=== PATIENT | female | born 1985 | race Caucasian/White ===

== ENCOUNTER 2021-01-16 06:51 | Inpatient (IN) | payer MEDICAID ==
[2021-01-16] MEDS ORDERED: Misoprostol 50 MCG (1/2 of 100 MCG) Tab VAG ONE (07:15)
[2021-01-16] MEDS ORDERED: Sodium Chloride 0.9% 10 ML Syringe FLUSH PRN (07:55)
[2021-01-16] MEDS ORDERED: Ondansetron 4 MG/2 ML SDV IV PRN (07:55)
[2021-01-16] MEDS ORDERED: Calcium Carbonate 500 MG Tab.Chew PO PRN (07:55)
[2021-01-16] MEDS ORDERED: Penicillin G Potassium 5 MILLUNITS in Sodium Chloride 0.9% 50 ML IV ONE (08:00)
[2021-01-16] MEDS ORDERED: Penicillin G Potassium 5 MILLUNITS in Sodium Chloride 0.9% 100 ML IV ONE (08:00)
[2021-01-16] MEDS: Sodium Chloride 0.9% 1,000 ML IV SCH ×2 (08:30→18:23)
--- NOTE | 2021-01-16 08:33 | PCM.LDHP ---
L&D History of Present Illness - General Date of Service: 01/16/21 Admit Problem/Dx: Patient Status Order with Admit Dx/Problem 01/16/21 07:55 Patient Status [ADT] Routine Admission Diagnosis/Problem Admission Diagnosis/Problem Term Source of Information: Patient History Limitations: Reports: No Limitations - History of Present Illness Introduction:: 01/16/21 Guadalupe is a 35 yo here for induction of labor at 39 2/7 weeks. She is currently living in [facility] for the last month. She has history of THC, smoking tobacco, and methamphetamine use in this , admitted by patient. Drug screen today is negative. She is O positive blood type, GBS positive, C/G negative, rubella immune, HIV/hep B/C/RPR all non reactive, and an A1C recently was 5.3. She reports that she does not currently have custody of her 5 year old and 2 year old twins, they are in the care of her mother. Her oldest child is 18. She has had all vaginal births without complications, pelvis is proven to 8 lb 14 oz. She is being induced today for advanced maternal age making her high risk, drug use in , and lack of care. Anatomy US was attempted x 2 but views were difficult to obtain due to size but no abnormalities were found. 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: : 4 Para: 4 LMP (Approximate): Endocrine/Metabolic History: Reports: Obesity/BMI 30+ - Past Surgical History Respiratory Surgical History: Reports: None Endocrine Surgical History: Reports: None Social & Family History - Tobacco Use Tobacco Use Status *Q: Current Every Day Tobacco User Years of Tobacco use: 22 Packs/Tins Daily: 0.5 Second Hand Smoke Exposure: Yes - Caffeine Use Caffeine Use: Reports: Coffee, Soda - Recreational Drug Use Recreational Drug Use: Yes Drug Use in Last 12 Months: Yes Recreational Drug Type: Reports: Marijuana/Hashish Recreational Drug Use Frequency: Daily Recreational Drug Last Use: 12/07/20 H&P Review of Systems - Review of Systems: Review Of Systems: See Below General: Reports: No Symptoms HEENT: Reports: No Symptoms Pulmonary: Reports: No Symptoms, Wheezing (chronic from smoking) Cardiovascular: Reports: No Symptoms Gastrointestinal: Reports: No Symptoms Genitourinary: Reports: No Symptoms Musculoskeletal: Reports: No Symptoms Skin: Reports: No Symptoms Psychiatric: Reports: No Symptoms Neurological: Reports: No Symptoms Hematologic/Lymphatic: Reports: No Symptoms Immunologic: Reports: No Symptoms L&D Exam - Exam Exam: See Below - Vital Signs Weight: 127.006 kg - OB Specific Contraction Intensity: Mild Movement: Active Heart Tones: Present Heart Tones per Min: 130 Heart Rate (FHR) Variability: Moderate (6-25 bmp) Presentation: Vertex - García Score García Score Cervix Position: Posterior García Score Consistency: Soft García Score Effacement: 31-50% García Score Dilation: 1-2 cm García Score 's Station: -3 García Score Total: 4 - Exam General: Alert, Oriented HEENT: PERRLA, Conjunctiva Clear, EACs Clear, Hearing Intact, Mucosa Moist & [place], Nares Patent, Posterior Pharynx Clear, Pupils Equal, Pupils Reactive Neck: Supple, Trachea Midline Lungs: Normal Respiratory Effort, Wheezing Cardiovascular: Regular Rate, Regular Rhythm GI/Abdominal Exam: Normal Bowel Sounds, Soft, Non-Tender, No Distention, Pelvis Stable Rectal Exam: Normal Exam Genitourinary: Normal external exam, Normal bimanual exam, Cervical dilitation. No: Vaginal bleeding Back Exam: Normal Inspection, Full Range of Motion Extremities: Normal Inspection, Normal Range of Motion, Non-Tender, Normal Capillary Refill, Pedal Edema (2+) Skin: Warm, Dry, Intact Neurological: Cranial Nerves Intact, Reflexes Equal Bilateral Psychiatric: Alert, Normal Affect, Normal Mood - Patient Data Lab Results Last 24 hrs: Laboratory Results - last 24 hr 01/16/21 01/16/21 01/16/21 Range/Units 06:59 06:59 07:13 WBC 11.0 (4.5-11.0) K/uL RBC 3.67 (3.30-5.50) M/uL Hgb 11.6 L (12.0-15.0) g/dL Hct 35.6 L (36.0-48.0) % MCV 97 (80-98) fL MCH 32 H (27-31) pg MCHC 33 (32-36) % Plt Count 248 (150-400) K/uL Neut % (Auto) 77.5 H (36-66) % Lymph % (Auto) 13.0 L (24-44) % [place] % (Auto) 8.1 H (2-6) % Eos % (Auto) 1.1 L (2-4) % Baso % (Auto) 0.3 (0-1) % Urine Color Yellow (YELLOW) Urine Appearance Cloudy A (CLEAR) Urine pH 7.0 (5.0-8.0) Ur Specific [place] 1.015 (1.008-1.030) Urine Protein Negative (NEGATIVE) mg/dL Urine Glucose (UA) Negative (NEGATIVE) mg/dL Urine Ketones Negative (NEGATIVE) mg/dL Urine Occult Blood Negative (NEGATIVE) Urine Nitrite Negative (NEGATIVE) Urine Bilirubin Negative (NEGATIVE) Urine Urobilinogen 0.2 (0.2-1.0) EU/dL Ur Leukocyte Esterase Trace H (NEGATIVE) Urine RBC 0-5 (0-5) Urine WBC 0-5 (0-5) Ur Epithelial Cells Many Amorphous Sediment Not seen Urine Bacteria Moderate Urine Mucus Moderate Urine Opiates Screen Negative (NEGATIVE) Ur Oxycodone Screen Negative (NEGATIVE) Urine Methadone Screen Negative (NEGATIVE) Ur Propoxyphene Screen Negative (NEGATIVE) Ur Barbiturates Screen Negative (NEGATIVE) Ur Tricyclics Screen Negative (NEGATIVE) Ur Phencyclidine Scrn Negative (NEGATIVE) Ur Amphetamine Screen Negative (NEGATIVE) U Methamphetamines Scrn Negative (NEGATIVE) Urine MDMA Screen Negative (NEGATIVE) U Benzodiazepines Scrn Negative (NEGATIVE) U Cocaine Metab Screen Negative (NEGATIVE) U Marijuana (THC) Screen Negative (NEGATIVE) Result Diagrams: 01/16/21 07:13 - Problem List (1) Encounter for induction of labor SNOMED Code(s): 676705540 ICD Code: Z34.90 - ENCNTR FOR SUPRVSN OF NORMAL , UNSP, UNSP TRIMESTER Status: Acute Current Visit: Yes (2) Term SNOMED Code(s): 54195221 ICD Code: Z34.90 - ENCNTR FOR SUPRVSN OF NORMAL , UNSP, UNSP TRIMESTER Status: Acute Current Visit: Yes (3) Drug abuse during SNOMED Code(s): 94538538 ICD Code: O99.320 - DRUG USE COMPLICATING , UNSPECIFIED TRIMESTER; F19.10 - OTHER PSYCHOACTIVE SUBSTANCE ABUSE, UNCOMPLICATED Status: Acute Current Visit: Yes (4) Positive GBS test SNOMED Code(s): 777368697, 345037520 ICD Code: B95.1 - STREPTOCOCCUS, GROUP B, CAUSING DISEASES CLASSD ELSWHR Status: Acute Current Visit: Yes (5) Advanced maternal age (AMA) in SNOMED Code(s): 003543711 ICD Code: PWR2173 - Status: Acute Current Visit: Yes Problem List Initiated/Reviewed/Updated: Yes Orders Last 24hrs: Active Orders 24 hr Category Date Time Status Patient Status [ADT] Routine ADT 01/16/21 07:55 Ordered Communication Order [RC] ASDIRECTED Care 01/16/21 07:55 Ordered Heart Tones [RC] PER UNIT ROUTINE Care 01/16/21 07:55 Ordered Non Stress Test [RC] Click to Edit Care 01/16/21 07:55 Ordered Notify Provider Vital Signs [RC] PRN Care 01/16/21 07:58 Ordered Notify Provider [RC] PRN Care 01/16/21 07:55 Ordered Up ad [place] [RC] ASDIRECTED Care 01/16/21 07:55 Ordered VTE/DVT Education [RC] Click to Edit Care 01/16/21 07:57 Ordered Vital Signs [RC] PER UNIT ROUTINE Care 01/16/21 07:55 Ordered Consult to Case Management/Tire Fabric Inspector [CONS] Cons 01/16/21 07:55 Ordered Routine Regular Diet [DIET] Diet 01/16/21 Breakfast Ordered Calcium Carbonate [Tums] Med 01/16/21 07:55 Ordered 1,000 mg PO Q2HR PRN Ondansetron [Zofran] Med 01/16/21 07:55 Ordered 4 mg IV Q4H PRN Penicillin G Potassium [Pfizerpen] 2.5 millunits Med 01/16/21 12:00 Ordered Sodium Chloride 0.9% [Normal Saline] 50 ml IV Q4H Penicillin G Potassium [Pfizerpen] 5 millunits Med 01/16/21 08:00 Active Sodium Chloride 0.9% [Normal Saline] 100 ml IV ONETIME Sodium Chloride 0.9% [Normal Saline] 1,000 ml Med 01/16/21 08:30 Ordered IV ASDIRECTED Sodium Chloride 0.9% [Saline Flush] Med 01/16/21 07:55 Ordered 10 ml FLUSH ASDIRECTED PRN DVT/VTE Prophylaxis Reflex [OM.PC] Routine Oth 01/16/21 07:55 Ordered Saline Lock Insert [OM.PC] Routine Oth 01/16/21 07:55 Ordered Resuscitation Status Routine Resus Stat 01/16/21 07:55 Ordered Medication Orders Calcium Carbonate/Glycine (Calcium Carbonate 500 Mg Tab.Chew) 1,000 mg PO Q2H PRN PRN Reason: Indigestion Penicillin G Potassium 2.5 (millunits/ Sodium Chloride) 50 mls @ 100 mls/hr IV Q4H ANGI Penicillin G Potassium 5 (millunits/ Sodium Chloride) 100 mls @ 200 mls/hr IV ONETIME ONE Stop: 01/16/21 08:29 Last Admin: 01/16/21 08:15 Dose: 200 mls/hr Documented by: BEATRICE Sodium Chloride (Normal Saline) 1,000 mls @ 125 mls/hr IV ASDIRECTED ANGI Ondansetron HCl (Ondansetron 4 Mg/2 Ml Sdv) 4 mg IV Q4H PRN PRN Reason: Nausea/Vomiting Sodium Chloride (Sodium Chloride 0.9% 10 Ml Syringe) 10 ml FLUSH ASDIRECTED PRN PRN Reason: Keep Vein Open Assessment/Plan Comment:: 01/16/21 Assessment: 39 2/7 weeks mother with AMA, drug use in , very limited care Induction of labor NST reactive SVE /-3, membranes intact Plan: [facility] contacted this morning, current case workers 50 mcg Cytotec inserted vaginally Plan for with epidural Penicillin for GBS
[2021-01-16] MEDS: Penicillin G Potassium 2.5 MILLUNITS in Sodium Chloride 0.9% 50 ML IV SCH ×3 (12:19→20:17)
--- NOTE | 2021-01-16 12:20 | PCM.PNLD ---
Labor Progress Note - VS & Meds Vital Signs: Last Vital Signs Temp 36.3 C 01/16/21 11:30 Pulse 94 01/16/21 11:30 Resp 16 01/16/21 11:30 BP 128/82 01/16/21 11:30 Pulse Ox 97 01/16/21 09:05 Active Medications: Current Medications Calcium Carbonate/Glycine (Calcium Carbonate 500 Mg Tab.Chew) 1,000 mg PO Q2H PRN PRN Reason: Indigestion Penicillin G Potassium 2.5 (millunits/ Sodium Chloride) 50 mls @ 100 mls/hr IV Q4H ANGI Sodium Chloride (Normal Saline) 1,000 mls @ 125 mls/hr IV ASDIRECTED ANGI Last Admin: 01/16/21 08:30 Dose: 125 mls/hr Documented by: Nicotine (Nicotine 7 Mg/24 Hr Patch) 7 mg TRDERM DAILY ANGI Ondansetron HCl (Ondansetron 4 Mg/2 Ml Sdv) 4 mg IV Q4H PRN PRN Reason: Nausea/Vomiting Sodium Chloride (Sodium Chloride 0.9% 10 Ml Syringe) 10 ml FLUSH ASDIRECTED PRN PRN Reason: Keep Vein Open Discontinued Medications Penicillin G Potassium 5 (millunits/ Sodium Chloride) 100 mls @ 200 mls/hr IV ONETIME ONE Stop: 01/16/21 08:29 Last Admin: 01/16/21 08:15 Dose: 200 mls/hr Documented by: Misoprostol (Misoprostol 50 Mcg (1/2 Of 100 Mcg) Tab) 50 mcg VAG ONETIME ONE Stop: 01/16/21 07:16 Last Admin: 01/16/21 08:13 Dose: 50 mcg Documented by: - Uterine Contractions Uterine Monitoring Mode: External [place] Contraction Frequency (min): 2 Contraction Duration (sec): 60-80 Contraction Intensity: Mild to Moderate Uterine Resting Tone: Soft - Monitoring Monitor Mode: External Ultrasound Heart Rate (FHR) Variability: Moderate (6-25 bmp) Accelerations: Present, 15x15 Decelerations: None Strip Review: Category I - Vaginal Exam Dilation (cm): 2 Effacement (Percent): 70 Station: -2 Cervical Position: Midposition Sterile Vaginal Exam Performed By: Denisse Brantley - Labor Progress (Free Text) Labor Progress: 01/16/21 Patient is having contractions every 2 minutes, mild to palpation and pain, they do feel like they have become stronger over the last hour patient reports. SVE /-2 and more mid position now so there has been good change. Will recheck in one hour and if no cervical change will start pitocin. Discussed AROM but would like to wait until 4-5 cm to do this. Category 1 tracing.
[2021-01-16] MEDS ORDERED: Nicotine 7 MG/24 Hr Patch TRDERM SCH (12:30)
[2021-01-16] MEDS ORDERED: Lactated Ringers 1,000 ML IV ONE (17:00)
[2021-01-16] MEDS ORDERED: ePHEDrine 50 MG/ML SDV IVPUSH PRN (17:00)
[2021-01-16] MEDS ORDERED: Propofol 200 MG/20 ML SDV ONE (17:08)
--- NOTE | 2021-01-16 17:09 | PCM.PNLD ---
Labor Progress Note - VS & Meds Vital Signs: Last Vital Signs Temp 36.6 C 01/16/21 16:00 Pulse 85 01/16/21 16:00 Resp 16 01/16/21 16:00 BP 139/78 01/16/21 16:00 Pulse Ox 94 L 01/16/21 16:00 Active Medications: Current Medications Calcium Carbonate/Glycine (Calcium Carbonate 500 Mg Tab.Chew) 1,000 mg PO Q2H PRN PRN Reason: Indigestion Ephedrine Sulfate (Ephedrine 50 Mg/Ml Sdv) 10 mg IVPUSH ASDIRECTED PRN PRN Reason: Hypotension Penicillin G Potassium 2.5 (millunits/ Sodium Chloride) 50 mls @ 100 mls/hr IV Q4H ANGI Last Admin: 01/16/21 12:19 Dose: 100 mls/hr Documented by: Sodium Chloride (Normal Saline) 1,000 mls @ 125 mls/hr IV ASDIRECTED ANGI Last Admin: 01/16/21 08:30 Dose: 125 mls/hr Documented by: Oxytocin/Sodium Chloride (Pitocin In Ns 20 Units/1,000 Ml) 20 unit in 1,000 mls @ 6 mls/hr IV TITRATE ANGI; Protocol Last Titration: 01/16/21 15:30 Dose: 5 munits/min, 15 mls/hr Documented by: Lactated Ringer's (Ringers, Lactated) 1,000 mls @ 999 mls/hr IV .BOLUS ONE Stop: 01/16/21 18:00 Ondansetron HCl (Ondansetron 4 Mg/2 Ml Sdv) 4 mg IV Q4H PRN PRN Reason: Nausea/Vomiting Sodium Chloride (Sodium Chloride 0.9% 10 Ml Syringe) 10 ml FLUSH ASDIRECTED PRN PRN Reason: Keep Vein Open Discontinued Medications Penicillin G Potassium 5 (millunits/ Sodium Chloride) 100 mls @ 200 mls/hr IV ONETIME ONE Stop: 01/16/21 08:29 Last Admin: 01/16/21 08:15 Dose: 200 mls/hr Documented by: Misoprostol (Misoprostol 50 Mcg (1/2 Of 100 Mcg) Tab) 50 mcg VAG ONETIME ONE Stop: 01/16/21 07:16 Last Admin: 01/16/21 08:13 Dose: 50 mcg Documented by: Nicotine (Nicotine 7 Mg/24 Hr Patch) 7 mg TRDERM DAILY ANGI Last Admin: 01/16/21 12:22 Dose: 7 mg Documented by: - Uterine Contractions Uterine Monitoring Mode: External [place] Contraction Frequency (min): 2-3 Contraction Duration (sec): 60-80 Contraction Intensity: Moderate Uterine Resting Tone: Soft - Monitoring Monitor Mode: External Ultrasound Heart Rate (FHR) Variability: Moderate (6-25 bmp) Accelerations: Present, 15x15 Decelerations: Early, Prolonged (>2x10 min) (x 1 ? positional) Strip Review: Category II - Vaginal Exam Dilation (cm): 5 Effacement (Percent): 80 Station: -2 Cervical Position: Midposition Sterile Vaginal Exam Performed By: Denisse Brantley - Labor Progress (Free Text) Labor Progress: 01/16/21 Patient did not have much for change so pitocin was started this afternoon. AROM was done at 1554 for large amounts of clear fluid. Patient is requesting epidural now and SVE is 5/80/-2. She is getting in the tub now and CUTTING DEPARTMENT SUPERVISOR was called. Category 1 tracing through out other than a questionable prolonged deceleration (mother was up bending over bed and it may have picked up her?) so this last bit is a category 2 but we have great variability. Contractions are strong.
[2021-01-16] MEDS ORDERED: Ropivacaine 100 ML ONE (19:10)
--- NOTE | 2021-01-16 19:26 | PCM.PNLD ---
Labor Progress Note - VS & Meds Vital Signs: Last Vital Signs Temp 35.8 C L 01/16/21 18:15 Pulse 82 01/16/21 19:00 Resp 18 01/16/21 19:00 BP 135/65 01/16/21 18:15 Pulse Ox 99 01/16/21 19:00 Active Medications: Current Medications Calcium Carbonate/Glycine (Calcium Carbonate 500 Mg Tab.Chew) 1,000 mg PO Q2H PRN PRN Reason: Indigestion Ephedrine Sulfate (Ephedrine 50 Mg/Ml Sdv) 10 mg IVPUSH ASDIRECTED PRN PRN Reason: Hypotension Penicillin G Potassium 2.5 (millunits/ Sodium Chloride) 50 mls @ 100 mls/hr IV Q4H ANGI Last Admin: 01/16/21 17:06 Dose: 100 mls/hr Documented by: Sodium Chloride (Normal Saline) 1,000 mls @ 125 mls/hr IV ASDIRECTED ANGI Last Admin: 01/16/21 18:23 Dose: 125 mls/hr Documented by: Oxytocin/Sodium Chloride (Pitocin In Ns 20 Units/1,000 Ml) 20 unit in 1,000 mls @ 6 mls/hr IV TITRATE ANGI; Protocol Last Titration: 01/16/21 15:30 Dose: 5 munits/min, 15 mls/hr Documented by: Ondansetron HCl (Ondansetron 4 Mg/2 Ml Sdv) 4 mg IV Q4H PRN PRN Reason: Nausea/Vomiting Sodium Chloride (Sodium Chloride 0.9% 10 Ml Syringe) 10 ml FLUSH ASDIRECTED PRN PRN Reason: Keep Vein Open Discontinued Medications Penicillin G Potassium 5 (millunits/ Sodium Chloride) 100 mls @ 200 mls/hr IV ONETIME ONE Stop: 01/16/21 08:29 Last Admin: 01/16/21 08:15 Dose: 200 mls/hr Documented by: Lactated Ringer's (Ringers, Lactated) 1,000 mls @ 999 mls/hr IV .BOLUS ONE Stop: 01/16/21 18:00 Last Admin: 01/16/21 16:50 Dose: 999 mls/hr Documented by: Ropivacaine (Naropin 0.2%) Confirm Administered Dose 100 mls @ as directed .ROUTE .STK-MED ONE Stop: 01/16/21 19:11 Misoprostol (Misoprostol 50 Mcg (1/2 Of 100 Mcg) Tab) 50 mcg VAG ONETIME ONE Stop: 01/16/21 07:16 Last Admin: 01/16/21 08:13 Dose: 50 mcg Documented by: Nicotine (Nicotine 7 Mg/24 Hr Patch) 7 mg TRDERM DAILY ANGI Last Admin: 01/16/21 12:22 Dose: 7 mg Documented by: Propofol (Propofol 200 Mg/20 Ml Sdv) Confirm Administered Dose 200 mg .ROUTE .STK-MED ONE Stop: 01/16/21 17:09 - Uterine Contractions Uterine Monitoring Mode: External [place] Contraction Frequency (min): 1.5-4 Contraction Duration (sec): 70-90 Contraction Intensity: Moderate Uterine Resting Tone: Soft - Monitoring Monitor Mode: External Ultrasound Heart Rate (FHR) Variability: Moderate (6-25 bmp) Accelerations: Present, 15x15 Decelerations: Early Strip Review: Category I (appears category 1 currently, broken tracing) - Vaginal Exam Dilation (cm): 7 Effacement (Percent): 80 Station: -2 Cervical Position: Midposition Sterile Vaginal Exam Performed By: Denisse Brantley - Labor Progress (Free Text) Labor Progress: 01/16/21 SVE 7/80/-2. Baby decent has been somewhat slow. PRICER here now and patient getting an epidural. She did well with nitrous oxide prior to this. The tracing is broken due to body habitus but baby appears category 1. Will continue to monitor FHT's and labor progress. Slowly titrating pitocin up.
--- NOTE | 2021-01-16 20:21 | ANES ---
DATE OF SERVICE: 01/16/2021 TIME: 19:15. INDICATION: I was called to the Labor and Delivery Unit by Denisse Brantley CNM, to evaluate Ms. Mott for a labor epidural. She is 5, approximately 5 to 7 cm, in active labor. The risks and benefits of the procedure were explained to the patient. She wished to proceed. Of note, she is allergic to latex, and I did use latex-free gloves. TECHNIQUE: She was placed in a sitting position. Her back was prepped x3 with Betadine, 1% lidocaine skin local was used. The epidural was placed at L3-4 using a 17-gauge Tuohy needle and loss of resistance technique. The epidural had very good feel throughout, and the epidural space was easily identified. There was negative CSF, negative blood, and negative paresthesias noted. Therefore, a catheter was threaded to 15 cm at the skin. There was negative CSF, negative blood, negative paresthesias with the catheter. A 1.5% lidocaine test dose with epinephrine was given, and this test dose was negative. The catheter was then secured with Tegaderm and tape. The patient was placed in a supine position. A 12 mL bolus of 0.2% ropivacaine was given. Patient had good results, and her vital signs remained stable. Therefore 0.2% ropivacaine drip was started at 12 mL/h. The patient tolerated procedure very nicely. Her vital signs remained stable throughout the procedure, and nurse was with me for the entire procedure. There were no anesthesia complications noted. We will continue to monitor her throughout her labor. Eric Manzano CRNA /[id number]
[2021-01-16] MEDS ORDERED: Methylergonovine 0.2 MG/1 ML Amp ONE (21:54)
[2021-01-16] MEDS ORDERED: Carboprost Tromethamine 250 MCG/1 ML Amp ONE (21:54)
[2021-01-16] MEDS ORDERED: Misoprostol 200 MCG Tab ONE (21:54)
[2021-01-16] MEDS ORDERED: Benzocaine 20% Top Spray 56 GM Bottle TOP PRN (22:47)
[2021-01-16] MEDS ORDERED: Docusate Sodium 100 MG Cap PO PRN (22:47)
[2021-01-16] MEDS ORDERED: Nicotine Polacrilex 2 MG Gum CHEW PRN (22:49)
[2021-01-16] MEDS ORDERED: Acetaminophen 325 MG Tab, 50 Tab Bulk Bottle PO PRN (22:49)
[2021-01-16] MEDS ORDERED: Ibuprofen 200 MG Tab, 24 Tab Bulk Bottle PO PRN (22:49)
--- NOTE | 2021-01-16 23:00 | PCM.DEL ---
L & D Note - General Info Date of Service: 01/16/21 Mother's Due Date: 01/21/21 - Delivery Note Labor: Augmented by ARM, Augmented by Oxytocin Cervical Ripening Method: Misoprostil Delivery Outcome: Livebirth Infant Delivery Method: Spontaneous Vaginal Delivery-Single Delivery Mode: Spontaneous Presentation: Left Occiput Anterior (ANDRIY) Nuchal Cord: None Anesthesia Type: Epidural, Nitrous Oxide Amniotic Fluid Description: Clear Episiotomy Type: None Laceration: Periurethral (right, repaired) Suture size: 3-0 Placenta: Intact, Spontaneous Cord: 3 Vessels Estimated Blood Loss: 300 Resuscitation Needed: No [place]: Bulb Syringe, Stimulated, [place] Used, Warmer Used Provider: Denisse Brantley Score 1 min: 7 Score 5 min: 8 Second Stage Interventions: Reports: Second Nurse Assessed Progress of Descent, Second Nurse Reviewed Contraction Pattern, Second Nurse Reviewed Heart Tones, Encouragement Given, Pushing Effectively, Pushing, McRobert's Position Delivery Comments (Free Text/Narrative):: 01/16/21 Guadalupe is a 35 yo who delivered a viable male infant at 39 2/7 weeks after induction of labor. She was induced for advanced maternal age, drug use in , and high risk for lack of care. There was THC, tobacco, and methamphetamine use in . Mother received care starting at 35 weeks after moving into an addiction treatment center. She was given cytotec this am for cervical ripening and then after pitocin was started. AROM was done for clear fluid this afternoon. She continued to make slow progress but eventually dilated and pushed briefly. Baby boy was delivered at 2220 in ANDRIY position. He was placed on mothers chest, dried, stimulated, and bulb suctioned. He cried quietly but had poor tone so the cord was clamped and cut at one minute and he was brought to the warmer to be aroused. He quickly cried and pinked up. Saturations were low, possibly poor pleth but blow by was done for retractions. I did CPAP for 1 minute at a pressure of 5 on RA due to wet sounding lungs, retractions, and to help his overall tone and breathing, not due to poor respiratory effort. He cried and saturations were normal from that point on. He was then brought to mothers chest. Placenta delivered dirty lees, appears intact but membranes are very friable, placental ortega noted on side, placenta had calcifications, 3 vessel cord. Sent to pathology. EBL 300 ml, FF with pitocin given for stage 3 management. Apgars 7, 9. There are no perinea l, vaginal, or cervical tears. There is a right sided periurethral split that was tacked in three spots loosely. Stages of labor: 1: 5682-9188 2: 1839-3045 3: 1871-9481 Induction Criteria - García Score García Score Dilation: 1-2 cm García Score Effacement: 40-50% García Score 's Station: -3 García Score Consistency: Soft García Score Cervix Position: Posterior García Score Total: 4 García Score Presenting Part: Reports: Cephalic - Induction Gestational Age >/= 39 wks: Yes Estimated Pelvis: Reports: Adequate Reassuring Monitoring Strip: Yes Absence of Tachy Systole: Yes - Augmentation Estimated Pelvis: Reports: Adequate Weight Estimated:: Reports: AGA Estimated Weight if LGA: 3.629 kg Reassuring Monitoring Strip: Yes Absence of Tachy Systole: Yes - General Info Date of Service: 01/16/21 Functional Status: Reports: Pain Controlled - Review of Systems General: Reports: No Symptoms HEENT: Reports: No Symptoms Pulmonary: Reports: No Symptoms Cardiovascular: Reports: No Symptoms Gastrointestinal: Reports: No Symptoms Genitourinary: Reports: No Symptoms Musculoskeletal: Reports: No Symptoms Skin: Reports: No Symptoms Neurological: Reports: No Symptoms Psychiatric: Reports: Anxiety, Cravings (tobacco, irritated) - Patient Data Vitals - Most Recent: Last Vital Signs Temp 36.5 C 01/16/21 19:50 Pulse 77 01/16/21 21:00 Resp 18 01/16/21 21:00 BP 103/59 L 01/16/21 21:00 Pulse Ox 97 01/16/21 21:00 Weight - Most Recent: 127.006 kg I&O - Last 24 Hours: Intake & Output 01/16/21 01/16/21 01/16/21 06:59 14:59 22:59 Intake Total 1050 Balance 1050 Lab Results Last 24 Hours: Laboratory Results - last 24 hr 01/16/21 01/16/21 01/16/21 Range/Units 06:59 06:59 07:13 WBC 11.0 (4.5-11.0) K/uL RBC 3.67 (3.30-5.50) M/uL Hgb 11.6 L (12.0-15.0) g/dL Hct 35.6 L (36.0-48.0) % MCV 97 (80-98) fL MCH 32 H (27-31) pg MCHC 33 (32-36) % Plt Count 248 (150-400) K/uL Neut % (Auto) 77.5 H (36-66) % Lymph % (Auto) 13.0 L (24-44) % [place] % (Auto) 8.1 H (2-6) % Eos % (Auto) 1.1 L (2-4) % Baso % (Auto) 0.3 (0-1) % Urine Color Yellow (YELLOW) Urine Appearance Cloudy A (CLEAR) Urine pH 7.0 (5.0-8.0) Ur Specific Whick 1.015 (1.008-1.030) Urine Protein Negative (NEGATIVE) mg/dL Urine Glucose (UA) Negative (NEGATIVE) mg/dL Urine Ketones Negative (NEGATIVE) mg/dL Urine Occult Blood Negative (NEGATIVE) Urine Nitrite Negative (NEGATIVE) Urine Bilirubin Negative (NEGATIVE) Urine Urobilinogen 0.2 (0.2-1.0) EU/dL Ur Leukocyte Esterase Trace H (NEGATIVE) Urine RBC 0-5 (0-5) Urine WBC 0-5 (0-5) Ur Epithelial Cells Many Amorphous Sediment Not seen Urine Bacteria Moderate Urine Mucus Moderate Urine Opiates Screen Negative (NEGATIVE) Ur Oxycodone Screen Negative (NEGATIVE) Urine Methadone Screen Negative (NEGATIVE) Ur Propoxyphene Screen Negative (NEGATIVE) Ur Barbiturates Screen Negative (NEGATIVE) Ur Tricyclics Screen Negative (NEGATIVE) Ur Phencyclidine Scrn Negative (NEGATIVE) Ur Amphetamine Screen Negative (NEGATIVE) U Methamphetamines Scrn Negative (NEGATIVE) Urine MDMA Screen Negative (NEGATIVE) U Benzodiazepines Scrn Negative (NEGATIVE) U Cocaine Metab Screen Negative (NEGATIVE) U Marijuana (THC) Screen Negative (NEGATIVE) SARS CoV-2 RNA Rapid ALIREZA 01/16/21 Range/Units 08:32 WBC (4.5-11.0) K/uL RBC (3.30-5.50) M/uL Hgb (12.0-15.0) g/dL Hct (36.0-48.0) % MCV (80-98) fL MCH (27-31) pg MCHC (32-36) % Plt Count (150-400) K/uL Neut % (Auto) (36-66) % Lymph % (Auto) (24-44) % [place] % (Auto) (2-6) % Eos % (Auto) (2-4) % Baso % (Auto) (0-1) % Urine Color (YELLOW) Urine Appearance (CLEAR) Urine pH (5.0-8.0) Ur Specific [place] (1.008-1.030) Urine Protein (NEGATIVE) mg/dL Urine Glucose (UA) (NEGATIVE) mg/dL Urine Ketones (NEGATIVE) mg/dL Urine Occult Blood (NEGATIVE) Urine Nitrite (NEGATIVE) Urine Bilirubin (NEGATIVE) Urine Urobilinogen (0.2-1.0) EU/dL Ur Leukocyte Esterase (NEGATIVE) Urine RBC (0-5) Urine WBC (0-5) Ur Epithelial Cells Amorphous Sediment Urine Bacteria Urine Mucus Urine Opiates Screen (NEGATIVE) Ur Oxycodone Screen (NEGATIVE) Urine Methadone Screen (NEGATIVE) Ur Propoxyphene Screen (NEGATIVE) Ur Barbiturates Screen (NEGATIVE) Ur Tricyclics Screen (NEGATIVE) Ur Phencyclidine Scrn (NEGATIVE) Ur Amphetamine Screen (NEGATIVE) U Methamphetamines Scrn (NEGATIVE) Urine MDMA Screen (NEGATIVE) U Benzodiazepines Scrn (NEGATIVE) U Cocaine Metab Screen (NEGATIVE) U Marijuana (THC) Screen (NEGATIVE) SARS CoV-2 RNA Rapid ALIREZA Negative Med Orders - Current: Current Medications Acetaminophen (Acetaminophen 325 Mg Tab, 50 Tab Bulk Bottle) 0 mg PO Q4H PRN PRN Reason: Pain Benzocaine (Benzocaine 20% Top [place] 56 Gm Bottle) 0 gm TOP Q4H PRN PRN Reason: Perineal Comfort Measure Calcium Carbonate/Glycine (Calcium Carbonate 500 Mg Tab.Chew) 1,000 mg PO Q2H PRN PRN Reason: Indigestion Docusate Sodium (Docusate Sodium 100 Mg Cap) 100 mg PO BID PRN PRN Reason: Constipation Ephedrine Sulfate (Ephedrine 50 Mg/Ml Sdv) 10 mg IVPUSH ASDIRECTED PRN PRN Reason: Hypotension Penicillin G Potassium 2.5 (millunits/ Sodium Chloride) 50 mls @ 100 mls/hr IV Q4H ANGI Last Admin: 01/16/21 20:17 Dose: 100 mls/hr Documented by: Sodium Chloride (Normal Saline) 1,000 mls @ 125 mls/hr IV ASDIRECTED ANGI Last Admin: 01/16/21 18:23 Dose: 125 mls/hr Documented by: Oxytocin/Sodium Chloride (Pitocin In Ns 20 Units/1,000 Ml) 20 unit in 1,000 mls @ 6 mls/hr IV TITRATE ANGI; Protocol Last Titration: 01/16/21 20:49 Dose: 9 munits/min, 27 mls/hr Documented by: Ibuprofen (Ibuprofen 200 Mg Tab, 24 Tab Bulk Bottle) 600 mg PO Q6H PRN PRN Reason: Pain Nicotine Polacrilex (Nicotine Polacrilex 2 Mg Gum) 2 mg CHEW Q2H PRN PRN Reason: Other Ondansetron HCl (Ondansetron 4 Mg/2 Ml Sdv) 4 mg IV Q4H PRN PRN Reason: Nausea/Vomiting Sodium Chloride (Sodium Chloride 0.9% 10 Ml Syringe) 10 ml FLUSH ASDIRECTED PRN PRN Reason: Keep Vein Open Discontinued Medications Carboprost Tromethamine (Carboprost Tromethamine 250 Mcg/1 Ml Amp) Confirm Administered Dose 250 mcg .ROUTE .STK-MED ONE Stop: 01/16/21 21:55 Penicillin G Potassium 5 (millunits/ Sodium Chloride) 100 mls @ 200 mls/hr IV ONETIME ONE Stop: 01/16/21 08:29 Last Admin: 01/16/21 08:15 Dose: 200 mls/hr Documented by: Lactated Ringer's (Ringers, Lactated) 1,000 mls @ 999 mls/hr IV .BOLUS ONE Stop: 01/16/21 18:00 Last Admin: 01/16/21 16:50 Dose: 999 mls/hr Documented by: Ropivacaine (Naropin 0.2%) Confirm Administered Dose 100 mls @ as directed .ROUTE .STK-MED ONE Stop: 01/16/21 19:11 Methylergonovine Maleate (Methylergonovine 0.2 Mg/1 Ml Amp) Confirm Administered Dose 0.2 mg .ROUTE .STK-MED ONE Stop: 01/16/21 21:55 Misoprostol (Misoprostol 50 Mcg (1/2 Of 100 Mcg) Tab) 50 mcg VAG ONETIME ONE Stop: 01/16/21 07:16 Last Admin: 01/16/21 08:13 Dose: 50 mcg Documented by: Misoprostol (Misoprostol 200 Mcg Tab) Confirm Administered Dose 800 mcg .ROUTE .STK-MED ONE Stop: 01/16/21 21:55 Nicotine (Nicotine 7 Mg/24 Hr Patch) 7 mg TRDERM DAILY ANGI Last Admin: 01/16/21 12:22 Dose: 7 mg Documented by: Propofol (Propofol 200 Mg/20 Ml Sdv) Confirm Administered Dose 200 mg .ROUTE .STK-MED ONE Stop: 01/16/21 17:09 - Exam Urinary Catheter Total Time: 0Days 2Hours General: Alert, Oriented HEENT: Pupils Equal, Pupils Reactive, Mucous Membr. Moist/[place] Neck: Supple Lungs: Clear to Auscultation, Normal Respiratory Effort Cardiovascular: Regular Rate, Regular Rhythm GI/Abdominal Exam: Normal Bowel Sounds, Soft, Non-Tender, Pelvis Stable (Female) Exam: Normal External Exam, Normal Bimanual Exam, Cervical Dilatation, Enlarged Uterus, Vaginal Bleeding. No: Cervical Lesions, Vaginal Tears Back Exam: Normal Inspection, Full Range of Motion Extremities: Normal Inspection, Normal Range of Motion, Non-Tender, Normal Capillary Refill, Pedal Edema Skin: Warm, Dry, Intact Neurological: No New Focal Deficit Psy/Mental Status: Alert, Normal Affect, Normal Mood - Problem List & Annotations (1) Encounter for induction of labor SNOMED Code(s): 295711722 Code(s): Z34.90 - ENCNTR FOR SUPRVSN OF NORMAL , UNSP, UNSP TRIMESTER Status: Acute Current Visit: Yes (2) Term SNOMED Code(s): 88713757 Code(s): Z34.90 - ENCNTR FOR SUPRVSN OF NORMAL , UNSP, UNSP TRIMESTER Status: Acute Current Visit: Yes (3) Drug abuse during SNOMED Code(s): 70891523 Code(s): O99.320 - DRUG USE COMPLICATING , UNSPECIFIED TRIMESTER; F19.10 - OTHER PSYCHOACTIVE SUBSTANCE ABUSE, UNCOMPLICATED Status: Acute Current Visit: Yes (4) Positive GBS test SNOMED Code(s): 251074438, 071872190 Code(s): B95.1 - STREPTOCOCCUS, GROUP B, CAUSING DISEASES CLASSD ELSWHR Status: Acute Current Visit: Yes (5) Advanced maternal age (AMA) in SNOMED Code(s): 645270844 Code(s): ZMW6172 - Status: Acute Current Visit: Yes (6) Tear of periurethral tissue with delivery SNOMED Code(s): 788362073, 914840836 Code(s): O71.89 - OTHER SPECIFIED OBSTETRIC TRAUMA Status: Acute Current Visit: Yes (7) Vaginal delivery SNOMED Code(s): 659307408 Code(s): O80 - ENCOUNTER FOR FULL-TERM UNCOMPLICATED DELIVERY Status: Acute Current Visit: Yes - Problem List Review Problem List Initiated/Reviewed/Updated: Yes - My Orders Last 24 Hours: My Active Orders 01/16/21 07:55 Patient Status [ADT] Routine Communication Order [RC] ASDIRECTED Heart Tones [RC] PER UNIT ROUTINE Non Stress Test [RC] Click to Edit Notify Provider [RC] PRN Up ad [place] [RC] ASDIRECTED Vital Signs [RC] PER UNIT ROUTINE Consult to Case Management/Accounts Receivable Clerk [CONS] Routine Calcium Carbonate [Tums] 1,000 mg PO Q2H PRN Ondansetron [Zofran] 4 mg IV Q4H PRN Sodium Chloride 0.9% [Saline Flush] 10 ml FLUSH ASDIRECTED PRN DVT/VTE Prophylaxis Reflex [OM.PC] Routine Saline Lock Insert [OM.PC] Routine Resuscitation Status Routine 01/16/21 07:57 VTE/DVT Education [RC] Click to Edit 01/16/21 07:58 Notify Provider Vital Signs [RC] PRN 01/16/21 Breakfast Regular Diet [DIET] 01/16/21 08:30 Sodium Chloride 0.9% [Normal Saline] 1,000 ml IV ASDIRECTED 01/16/21 12:00 Penicillin G Potassium [Pfizerpen] 2.5 millunits Sodium Chloride 0.9% [Normal Saline] 50 ml IV Q4H 01/16/21 13:15 Oxytocin/Normal Saline [Pitocin in NS 20 Units/1,000 ML] 20 unit in 1,000 ml IV TITRATE 01/16/21 17:00 Communication Order [RC] ASDIRECTED Insert Urinary Catheter [OM.PC] ASDIRECTED Local Anesthetic Infusion Pump [RC] ASDIRECTED PCEA Epidural [RC] ASDIRECTED Urinary Catheter Assessment [RC] ASDIRECTED ePHEDrine [ePHEDrine sulfate] 10 mg IVPUSH ASDIRECTED PRN Epidural Catheter Management [OM.PC] Urgent 01/16/21 18:02 Communication Order [RC] Per Unit Routine Communication Order [RC] Per Unit Routine Communication Order [RC] Per Unit Routine Communication Order [RC] Per Unit Routine Nitrous Oxide Delivery [RC] ASDIRECTED Oxygen Therapy [RC] ASDIRECTED Pulse Oximetry [RC] ASDIRECTED Verify Patient Consent Obtain [RC] ASDIRECTED Medication Discontinuation Instructions [OM.PC] Routine 01/16/21 22:47 Patient Status [ADT] Routine Vital Signs [RC] PFP Benzocaine [Pknq-Z-Jlhfoad 20% [place]] See Dose Instructions TOP Q4H PRN Docusate Sodium [Colace] 100 mg PO BID PRN Assess Lochia [WOMSER] Per Unit Routine Assess Uterine Involution [WOMSER] Per Unit Routine 01/16/21 22:48 Ice Therapy [OM.PC] Per Unit Routine Perineal Care [OM.PC] Per Unit Routine 01/16/21 22:49 Acetaminophen [Tylenol Bulk Bottle] See Dose Instructions PO Q4H PRN Ibuprofen [Motrin Bulk Bottle] 600 mg PO Q6H PRN Nicotine Polacrilex [Nicorelief] 2 mg CHEW Q2H PRN 01/17/21 05:11 CBC WITH AUTO DIFF [HEME] AM - Assessment Assessment:: 01/16/21 at 39 2/7 Periurethral split, right side, repaired EBL 300 ml FF Bottle feeding - Plan Plan:: 01/16/21 Assessment: 39 2/7 weeks mother with AMA, drug use in , very limited care Induction of labor NST reactive SVE 3, membranes intact Plan: [facility] services contacted this morning, current case workers 50 mcg Cytotec inserted vaginally Plan for with epidural Penicillin for GBS 01/16/21 Routine cares and follow up building services engineer involved, no concern for keeping baby with mother for now Anticipate 24-48 hour stay for mother Nicotine gum ordered
[2021-01-17] MEDS: Penicillin G Potassium 2.5 MILLUNITS in Sodium Chloride 0.9% 50 ML IV SCH (00:09)
--- NOTE | 2021-01-17 08:51 | PCM.PNPP ---
- General Info Date of Service: 01/17/21 Functional Status: Reports: Pain Controlled - Review of Systems General: Reports: No Symptoms HEENT: Reports: No Symptoms Pulmonary: Reports: No Symptoms Cardiovascular: Reports: Edema (pedal) Gastrointestinal: Reports: No Symptoms Genitourinary: Reports: No Symptoms Musculoskeletal: Reports: No Symptoms Skin: Reports: No Symptoms Neurological: Reports: No Symptoms Psychiatric: Reports: Anxiety (slightly irritated but cooperative and calm with staff), Cravings (cigarettes) - General Info Date of Service: 01/17/21 - Patient Data Vital Signs - Most Recent: Last Vital Signs Temp 36.4 C 01/17/21 07:30 Pulse 86 01/17/21 07:30 Resp 20 01/17/21 07:30 BP 121/67 01/17/21 07:30 Pulse Ox 96 01/17/21 07:30 Weight - Most Recent: 127.006 kg I&O - Last 24 Hours: Intake & Output 01/16/21 01/17/21 01/17/21 22:59 06:59 14:59 Intake Total 1050 Output Total 500 Balance 550 Lab Results - Last 24 Hours: Laboratory Results - last 24 hr 01/16/21 01/17/21 Range/Units 08:32 05:35 WBC 12.8 H (4.5-11.0) K/uL RBC 3.52 (3.30-5.50) M/uL Hgb 11.3 L (12.0-15.0) g/dL Hct 34.1 L (36.0-48.0) % MCV 97 (80-98) fL MCH 32 H (27-31) pg MCHC 33 (32-36) % Plt Count 213 (150-400) K/uL Neut % (Auto) 80.5 H (36-66) % Lymph % (Auto) 11.1 L (24-44) % [place] % (Auto) 7.3 H (2-6) % Eos % (Auto) 0.9 L (2-4) % Baso % (Auto) 0.2 (0-1) % SARS CoV-2 RNA Rapid ALIREZA Negative Med Orders - Current: Current Medications Acetaminophen (Acetaminophen 325 Mg Tab, 50 Tab Bulk Bottle) 1 - 2 mg PO Q4H PRN PRN Reason: Pain Last Admin: 01/17/21 00:18 Dose: 650 mg Documented by: Benzocaine (Benzocaine 20% Top [place] 56 Gm Bottle) 0 gm TOP Q4H PRN PRN Reason: Perineal Comfort Measure Last Admin: 01/17/21 00:19 Dose: 1 applic Documented by: Calcium Carbonate/Glycine (Calcium Carbonate 500 Mg Tab.Chew) 1,000 mg PO Q2H PRN PRN Reason: Indigestion Docusate Sodium (Docusate Sodium 100 Mg Cap) 100 mg PO BID PRN PRN Reason: Constipation Ibuprofen (Ibuprofen 200 Mg Tab, 24 Tab Bulk Bottle) 600 mg PO Q6H PRN PRN Reason: Pain Last Admin: 01/17/21 00:18 Dose: 600 mg Documented by: Nicotine Polacrilex (Nicotine Polacrilex 2 Mg Gum) 2 mg CHEW Q2H PRN PRN Reason: Other Last Admin: 01/17/21 00:18 Dose: 2 mg Documented by: Ondansetron HCl (Ondansetron 4 Mg/2 Ml Sdv) 4 mg IV Q4H PRN PRN Reason: Nausea/Vomiting Sodium Chloride (Sodium Chloride 0.9% 10 Ml Syringe) 10 ml FLUSH ASDIRECTED PRN PRN Reason: Keep Vein Open Discontinued Medications Carboprost Tromethamine (Carboprost Tromethamine 250 Mcg/1 Ml Amp) Confirm Administered Dose 250 mcg .ROUTE .STK-MED ONE Stop: 01/16/21 21:55 Last Admin: 01/17/21 00:09 Dose: Not Given Documented by: Ephedrine Sulfate (Ephedrine 50 Mg/Ml Sdv) 10 mg IVPUSH ASDIRECTED PRN PRN Reason: Hypotension Penicillin G Potassium 2.5 (millunits/ Sodium Chloride) 50 mls @ 100 mls/hr IV Q4H [facility] Last Admin: 01/17/21 00:09 Dose: Not Given Documented by: Penicillin G Potassium 5 (millunits/ Sodium Chloride) 100 mls @ 200 mls/hr IV ONETIME ONE Stop: 01/16/21 08:29 Last Admin: 01/16/21 08:15 Dose: 200 mls/hr Documented by: Sodium Chloride (Normal Saline) 1,000 mls @ 125 mls/hr IV ASDIRECTED [facility] Last Admin: 01/16/21 18:23 Dose: 125 mls/hr Documented by: Oxytocin/Sodium Chloride (Pitocin In Ns 20 Units/1,000 Ml) 20 unit in 1,000 mls @ 6 mls/hr IV TITRATE ANGI; Protocol Last Titration: 01/16/21 20:49 Dose: 9 munits/min, 27 mls/hr Documented by: Lactated Ringer's (Ringers, Lactated) 1,000 mls @ 999 mls/hr IV .BOLUS ONE Stop: 01/16/21 18:00 Last Admin: 01/16/21 16:50 Dose: 999 mls/hr Documented by: Ropivacaine (Naropin 0.2%) Confirm Administered Dose 100 mls @ as directed .ROUTE .STK-MED ONE Stop: 01/16/21 19:11 Methylergonovine Maleate (Methylergonovine 0.2 Mg/1 Ml Amp) Confirm Administered Dose 0.2 mg .ROUTE .STK-MED ONE Stop: 01/16/21 21:55 Last Admin: 01/17/21 00:09 Dose: Not Given Documented by: Misoprostol (Misoprostol 50 Mcg (1/2 Of 100 Mcg) Tab) 50 mcg VAG ONETIME ONE Stop: 01/16/21 07:16 Last Admin: 01/16/21 08:13 Dose: 50 mcg Documented by: Misoprostol (Misoprostol 200 Mcg Tab) Confirm Administered Dose 800 mcg .ROUTE .STK-MED ONE Stop: 01/16/21 21:55 Last Admin: 01/17/21 00:08 Dose: Not Given Documented by: Nicotine (Nicotine 7 Mg/24 Hr Patch) 7 mg TRDERM DAILY [facility] Last Admin: 01/16/21 12:22 Dose: 7 mg Documented by: Propofol (Propofol 200 Mg/20 Ml Sdv) Confirm Administered Dose 200 mg .ROUTE .STK-MED ONE Stop: 01/16/21 17:09 - Interaction Infant Disposition, : at Bedside Interaction: Holding Infant Feeding: Bottle Fed - Recovery Exam Fundal Tone: Firm Fundal Level: At Umbilicus Fundal Placement: Midline Lochia Amount: Moderate Lochia Color: Rubra/Red Perineum Description: Intact, Minimal Bruising/Swelling Episiotomy/Laceration: Approximated Bladder Status: Voiding Urinary Elimination: Voided - Exam General: Alert, Oriented, Cooperative HEENT: Pupils Equal, Pupils Reactive, Mucous Membr. Moist/[place] Neck: Supple Lungs: Clear to Auscultation, Normal Respiratory Effort Cardiovascular: Regular Rate, Regular Rhythm GI/Abdominal Exam: Normal Bowel Sounds, Soft, Non-Tender, No Mass, Pelvis Stable Extremities: Normal Inspection, Normal Range of Motion, Non-Tender, Normal Capillary Refill, Pedal Edema Skin: Warm, Dry, Intact Neurological: No New Focal Deficit Psy/Mental Status: Alert, Normal Affect, Anxious, Agitated (wanting to smoke, antsy, cooperative and doing well with baby) - Problem List & Annotations (1) Encounter for induction of labor SNOMED Code(s): 008942098 Code(s): Z34.90 - ENCNTR FOR SUPRVSN OF NORMAL , UNSP, UNSP TR IMESTER Status: Acute Current Visit: Yes (2) Term SNOMED Code(s): 11305845 Code(s): Z34.90 - ENCNTR FOR SUPRVSN OF NORMAL , UNSP, UNSP TRIMESTER Status: Acute Current Visit: Yes (3) Drug abuse during SNOMED Code(s): 78776361 Code(s): O99.320 - DRUG USE COMPLICATING , UNSPECIFIED TRIMESTER; F19.10 - OTHER PSYCHOACTIVE SUBSTANCE ABUSE, UNCOMPLICATED Status: Acute Current Visit: Yes (4) Positive GBS test SNOMED Code(s): 811426617, 001133272 Code(s): B95.1 - STREPTOCOCCUS, GROUP B, CAUSING DISEASES CLASSD ELSR Status: Acute Current Visit: Yes (5) Advanced maternal age (AMA) in SNOMED Code(s): 915055859 Code(s): YNX5527 - Status: Acute Current Visit: Yes (6) Tear of periurethral tissue with delivery SNOMED Code(s): 997733992, 597049690 Code(s): O71.89 - OTHER SPECIFIED OBSTETRIC TRAUMA Status: Acute Current Visit: Yes (7) Vaginal delivery SNOMED Code(s): 091459575 Code(s): O80 - ENCOUNTER FOR FULL-TERM UNCOMPLICATED DELIVERY Status: Acute Current Visit: Yes - Problem List Review Problem List Initiated/Reviewed/Updated: Yes - My Orders Last 24 Hours: My Active Orders 01/16/21 07:55 Patient Status [ADT] Routine Up ad [place] [RC] ASDIRECTED Vital Signs [RC] PER UNIT ROUTINE Consult to Case Management/Addiction Treatment Counselor [CONS] Routine Calcium Carbonate [Tums] 1,000 mg PO Q2H PRN Ondansetron [Zofran] 4 mg IV Q4H PRN Sodium Chloride 0.9% [Saline Flush] 10 ml FLUSH ASDIRECTED PRN DVT/VTE Prophylaxis Reflex [OM.PC] Routine Saline Lock Insert [OM.PC] Routine Resuscitation Status Routine 01/16/21 07:57 VTE/DVT Education [RC] Click to Edit 01/16/21 07:58 Notify Provider Vital Signs [RC] PRN 01/16/21 Breakfast Regular Diet [DIET] 01/16/21 17:00 Communication Order [RC] ASDIRECTED Insert Urinary Catheter [OM.PC] ASDIRECTED Epidural Catheter Management [OM.PC] Urgent 01/16/21 18:02 Communication Order [RC] Per Unit Routine Communication Order [RC] Per Unit Routine Communication Order [RC] Per Unit Routine Oxygen Therapy [RC] ASDIRECTED Verify Patient Consent Obtain [RC] ASDIRECTED Medication Discontinuation Instructions [OM.PC] Routine 01/16/21 22:47 Patient Status [ADT] Routine Vital Signs [RC] PFP Benzocaine [Zcxz-P-Vjwzjsu 20% [place]] See Dose Instructions TOP Q4H PRN Docusate Sodium [Colace] 100 mg PO BID PRN Assess Lochia [WOMSER] Per Unit Routine Assess Uterine Involution [WOMSER] Per Unit Routine 01/16/21 22:48 Ice Therapy [OM.PC] Per Unit Routine Perineal Care [OM.PC] Per Unit Routine 01/16/21 22:49 Acetaminophen [Tylenol Bulk Bottle] 1 - 2 mg PO Q4H PRN Ibuprofen [Motrin Bulk Bottle] 600 mg PO Q6H PRN Nicotine Polacrilex [Nicorelief] 2 mg CHEW Q2H PRN - Assessment Assessment:: 01/16/21 at 39 2/7 Periurethral split, right side, repaired EBL 300 ml FF Bottle feeding 01/17/21 Doing well , bleeding light, FF AVSS Voiding, minimal pain in perineum Hgb stable Mother is caring appropriately for baby, no concerns from staff - Plan Plan:: 01/16/21 Assessment: 39 2/7 weeks mother with AMA, drug use in , very limited care Induction of labor NST reactive SVE -3, membranes intact Plan: [facility] social media marketing manager contacted this morning, current case workers 50 mcg Cytotec inserted vaginally Plan for with epidural Penicillin for GBS 01/16/21 Routine cares and follow up printing services coordinator involved, no concern for keeping baby with mother for now Anticipate 24-48 hour stay for mother Nicotine gum ordered 01/17/21 Routine cares SS consult Anticipate discharge 48 hours
--- NOTE | 2021-01-18 08:17 | PCM.PNPP ---
- General Info Date of Service: 01/18/21 Functional Status: Reports: Pain Controlled - Review of Systems General: Reports: No Symptoms HEENT: Reports: No Symptoms Pulmonary: Reports: No Symptoms Cardiovascular: Reports: No Symptoms Gastrointestinal: Reports: No Symptoms Genitourinary: Reports: No Symptoms Musculoskeletal: Reports: No Symptoms Skin: Reports: No Symptoms Neurological: Reports: No Symptoms Psychiatric: Reports: No Symptoms - General Info Date of Service: 01/18/21 - Patient Data Vital Signs - Most Recent: Last Vital Signs Temp 36.4 C 01/18/21 07:35 Pulse 85 01/18/21 07:35 Resp 18 01/18/21 07:35 BP 133/75 01/18/21 07:35 Pulse Ox 98 01/18/21 07:35 Weight - Most Recent: 127.006 kg I&O - Last 24 Hours: Intake & Output 01/17/21 01/18/21 01/18/21 22:59 06:59 14:59 Intake Total 1000 Balance 1000 Med Orders - Current: Current Medications Acetaminophen (Acetaminophen 325 Mg Tab, 50 Tab Bulk Bottle) 1 - 2 mg PO Q4H PRN PRN Reason: Pain Last Admin: 01/17/21 00:18 Dose: 650 mg Documented by: Benzocaine (Benzocaine 20% Top [place] 56 Gm Bottle) 0 gm TOP Q4H PRN PRN Reason: Perineal Comfort Measure Last Admin: 01/17/21 00:19 Dose: 1 applic Documented by: Calcium Carbonate/Glycine (Calcium Carbonate 500 Mg Tab.Chew) 1,000 mg PO Q2H PRN PRN Reason: Indigestion Docusate Sodium (Docusate Sodium 100 Mg Cap) 100 mg PO BID PRN PRN Reason: Constipation Ibuprofen (Ibuprofen 200 Mg Tab, 24 Tab Bulk Bottle) 600 mg PO Q6H PRN PRN Reason: Pain Last Admin: 01/17/21 00:18 Dose: 600 mg Documented by: Nicotine Polacrilex (Nicotine Polacrilex 2 Mg Gum) 2 mg CHEW Q2H PRN PRN Reason: Other Last Admin: 01/17/21 00:18 Dose: 2 mg Documented by: Ondansetron HCl (Ondansetron 4 Mg/2 Ml Sdv) 4 mg IV Q4H PRN PRN Reason: Nausea/Vomiting Sodium Chloride (Sodium Chloride 0.9% 10 Ml Syringe) 10 ml FLUSH ASDIRECTED PRN PRN Reason: Keep Vein Open Discontinued Medications Carboprost Tromethamine (Carboprost Tromethamine 250 Mcg/1 Ml Amp) Confirm Administered Dose 250 mcg .ROUTE .STK-MED ONE Stop: 01/16/21 21:55 Last Admin: 01/17/21 00:09 Dose: Not Given Documented by: Ephedrine Sulfate (Ephedrine 50 Mg/Ml Sdv) 10 mg IVPUSH ASDIRECTED PRN PRN Reason: Hypotension Penicillin G Potassium 2.5 (millunits/ Sodium Chloride) 50 mls @ 100 mls/hr IV Q4H ANGI Last Admin: 01/17/21 00:09 Dose: Not Given Documented by: Penicillin G Potassium 5 (millunits/ Sodium Chloride) 100 mls @ 200 mls/hr IV ONETIME ONE Stop: 01/16/21 08:29 Last Admin: 01/16/21 08:15 Dose: 200 mls/hr Documented by: Sodium Chloride (Normal Saline) 1,000 mls @ 125 mls/hr IV ASDIRECTED ANGI Last Admin: 01/16/21 18:23 Dose: 125 mls/hr Documented by: Oxytocin/Sodium Chloride (Pitocin In Ns 20 Units/1,000 Ml) 20 unit in 1,000 mls @ 6 mls/hr IV TITRATE [facility]; Protocol Last Titration: 01/16/21 20:49 Dose: 9 munits/min, 27 mls/hr Documented by: Lactated Ringer's (Ringers, Lactated) 1,000 mls @ 999 mls/hr IV .BOLUS ONE Stop: 01/16/21 18:00 Last Admin: 01/16/21 16:50 Dose: 999 mls/hr Documented by: Ropivacaine (Naropin 0.2%) Confirm Administered Dose 100 mls @ as directed .ROUTE .STK-MED ONE Stop: 01/16/21 19:11 Methylergonovine Maleate (Methylergonovine 0.2 Mg/1 Ml Amp) Confirm Administered Dose 0.2 mg .ROUTE .STK-MED ONE Stop: 01/16/21 21:55 Last Admin: 01/17/21 00:09 Dose: Not Given Documented by: Misoprostol (Misoprostol 50 Mcg (1/2 Of 100 Mcg) Tab) 50 mcg VAG ONETIME ONE Stop: 01/16/21 07:16 Last Admin: 01/16/21 08:13 Dose: 50 mcg Documented by: Misoprostol (Misoprostol 200 Mcg Tab) Confirm Administered Dose 800 mcg .ROUTE .STK-MED ONE Stop: 01/16/21 21:55 Last Admin: 01/17/21 00:08 Dose: Not Given Documented by: Nicotine (Nicotine 7 Mg/24 Hr Patch) 7 mg TRDERM DAILY ANGI Last Admin: 01/16/21 12:22 Dose: 7 mg Documented by: Propofol (Propofol 200 Mg/20 Ml Sdv) Confirm Administered Dose 200 mg .ROUTE .STK-MED ONE Stop: 01/16/21 17:09 - Interaction Infant Disposition, : [place] at Bedside Interaction: Holding Feeding: Bottle Fed Infant Support Person: Significant Other, Friend - Recovery Exam Fundal Tone: Firm Fundal Level: At Umbilicus Fundal Placement: Midline Lochia Amount: Moderate Lochia Color: [place]/Red Perineum Description: Intact, Minimal Bruising/Swelling Episiotomy/Laceration: Approximated Bladder Status: Voiding Urinary Elimination: Voided - Exam General: Alert, Oriented, Cooperative HEENT: Pupils Equal, Pupils Reactive, EOMI, Mucous Membr. Moist/[place] Neck: Supple Lungs: Clear to Auscultation, Normal Respiratory Effort Cardiovascular: Regular Rate, Regular Rhythm GI/Abdominal Exam: Normal Bowel Sounds, Soft, Non-Tender, No Organomegaly, No Distention, No Abnormal Bruit, No Mass, Pelvis Stable Extremities: Normal Inspection, Normal Range of Motion, Non-Tender, No Pedal Edema, Normal Capillary Refill Skin: Warm, Dry, Intact Neurological: No New Focal Deficit Psy/Mental Status: Alert, Normal Affect, Normal Mood - Problem List & Annotations (1) Advanced maternal age (AMA) in SNOMED Code(s): 988787408 Code(s): JGM9344 - Status: Acute Current Visit: Yes (2) Drug abuse during SNOMED Code(s): 54073553 Code(s): O99.320 - DRUG USE COMPLICATING , UNSPECIFIED TRIMESTER; F19.10 - OTHER PSYCHOACTIVE SUBSTANCE ABUSE, UNCOMPLICATED Status: Acute Current Visit: Yes (3) Positive GBS test SNOMED Code(s): 488626257, 459934440 Code(s): B95.1 - STREPTOCOCCUS, GROUP B, CAUSING DISEASES CLASSD [facility] Status: Acute Current Visit: Yes (4) Tear of periurethral tissue with delivery SNOMED Code(s): 913722168, 718157787 Code(s): O71.89 - OTHER SPECIFIED OBSTETRIC TRAUMA Status: Acute Current Visit: Yes (5) Vaginal delivery SNOMED Code(s): 236411603 Code(s): O80 - ENCOUNTER FOR FULL-TERM UNCOMPLICATED DELIVERY Status: Acute Current Visit: Yes - Problem List Review Problem List Initiated/Reviewed/Updated: Yes - Assessment Assessment:: 01/16/21 at 39 2/7 Periurethral split, right side, repaired EBL 300 ml FF Bottle feeding 01/17/21 Doing well , bleeding light, FF AVSS Voiding, minimal pain in perineum Hgb stable Mother is caring appropriately for baby, no concerns from staff 01/18/21 day two Fundus firm and bleeding decreasing AVSS Voiding, minimal pain in perineum, passing gas Mother is caring appropriately for baby, no concerns from staff - Plan Plan:: 01/16/21 Assessment: 39 2/7 weeks mother with AMA, drug use in , very limited care Induction of labor NST reactive SVE /-3, membranes intact Plan: [facility] manager social media contacted this morning, current case workers 50 mcg Cytotec inserted vaginally Plan for with epidural Penicillin for GBS 01/16/21 Routine cares and follow up client services account manager involved, no concern for keeping baby with mother for now Anticipate 24-48 hour stay for mother Nicotine gum ordered 01/17/21 Routine cares SS consult Anticipate discharge 48 hours 01/18/21 Continue routine cares Anticipate discharge home tomorrow
--- NOTE | 2021-01-19 08:33 | PCM.PNPP ---
- General Info Date of Service: 01/19/21 Functional Status: Reports: Pain Controlled - Review of Systems General: Reports: No Symptoms HEENT: Reports: No Symptoms Pulmonary: Reports: No Symptoms Cardiovascular: Reports: No Symptoms Gastrointestinal: Reports: No Symptoms Genitourinary: Reports: No Symptoms Musculoskeletal: Reports: No Symptoms Skin: Reports: No Symptoms Neurological: Reports: No Symptoms Psychiatric: Reports: No Symptoms - General Info Date of Service: 01/19/21 - Patient Data Vital Signs - Most Recent: Last Vital Signs Temp 35.9 C L 01/19/21 07:51 Pulse 80 01/19/21 07:51 Resp 14 01/19/21 07:51 BP 129/44 L 01/19/21 07:51 Pulse Ox 96 01/19/21 07:51 Weight - Most Recent: 127.006 kg Med Orders - Current: Current Medications Acetaminophen (Acetaminophen 325 Mg Tab, 50 Tab Bulk Bottle) 1 - 2 mg PO Q4H PRN PRN Reason: Pain Last Admin: 01/17/21 00:18 Dose: 650 mg Documented by: Benzocaine (Benzocaine 20% Top [place] 56 Gm Bottle) 0 gm TOP Q4H PRN PRN Reason: Perineal Comfort Measure Last Admin: 01/17/21 00:19 Dose: 1 applic Documented by: Calcium Carbonate/Glycine (Calcium Carbonate 500 Mg Tab.Chew) 1,000 mg PO Q2H PRN PRN Reason: Indigestion Docusate Sodium (Docusate Sodium 100 Mg Cap) 100 mg PO BID PRN PRN Reason: Constipation Ibuprofen (Ibuprofen 200 Mg Tab, 24 Tab Bulk Bottle) 600 mg PO Q6H PRN PRN Reason: Pain Last Admin: 01/17/21 00:18 Dose: 600 mg Documented by: Nicotine Polacrilex (Nicotine Polacrilex 2 Mg Gum) 2 mg CHEW Q2H PRN PRN Reason: Other Last Admin: 01/17/21 00:18 Dose: 2 mg Documented by: Ondansetron HCl (Ondansetron 4 Mg/2 Ml Sdv) 4 mg IV Q4H PRN PRN Reason: Nausea/Vomiting Sodium Chloride (Sodium Chloride 0.9% 10 Ml Syringe) 10 ml FLUSH ASDIRECTED PRN PRN Reason: Keep Vein Open Discontinued Medications Carboprost Tromethamine (Carboprost Tromethamine 250 Mcg/1 Ml Amp) Confirm Administered Dose 250 mcg .ROUTE .STK-MED ONE Stop: 01/16/21 21:55 Last Admin: 01/17/21 00:09 Dose: Not Given Documented by: Ephedrine Sulfate (Ephedrine 50 Mg/Ml Sdv) 10 mg IVPUSH ASDIRECTED PRN PRN Reason: Hypotension Penicillin G Potassium 2.5 (millunits/ Sodium Chloride) 50 mls @ 100 mls/hr IV Q4H ANGI Last Admin: 01/17/21 00:09 Dose: Not Given Documented by: Penicillin G Potassium 5 (millunits/ Sodium Chloride) 100 mls @ 200 mls/hr IV ONETIME ONE Stop: 01/16/21 08:29 Last Admin: 01/16/21 08:15 Dose: 200 mls/hr Documented by: Sodium Chloride (Normal Saline) 1,000 mls @ 125 mls/hr IV ASDIRECTED ANGI Last Admin: 01/16/21 18:23 Dose: 125 mls/hr Documented by: Oxytocin/Sodium Chloride (Pitocin In Ns 20 Units/1,000 Ml) 20 unit in 1,000 mls @ 6 mls/hr IV TITRATE [facility]; Protocol Last Titration: 01/16/21 20:49 Dose: 9 munits/min, 27 mls/hr Documented by: Lactated Ringer's (Ringers, Lactated) 1,000 mls @ 999 mls/hr IV .BOLUS ONE Stop: 01/16/21 18:00 Last Admin: 01/16/21 16:50 Dose: 999 mls/hr Documented by: Ropivacaine (Naropin 0.2%) Confirm Administered Dose 100 mls @ as directed .ROUTE .STK-MED ONE Stop: 01/16/21 19:11 Methylergonovine Maleate (Methylergonovine 0.2 Mg/1 Ml Amp) Confirm Administered Dose 0.2 mg .ROUTE .STK-MED ONE Stop: 01/16/21 21:55 Last Admin: 01/17/21 00:09 Dose: Not Given Documented by: Misoprostol (Misoprostol 50 Mcg (1/2 Of 100 Mcg) Tab) 50 mcg VAG ONETIME ONE Stop: 01/16/21 07:16 Last Admin: 01/16/21 08:13 Dose: 50 mcg Documented by: Misoprostol (Misoprostol 200 Mcg Tab) Confirm Administered Dose 800 mcg .ROUTE .STK-MED ONE Stop: 01/16/21 21:55 Last Admin: 01/17/21 00:08 Dose: Not Given Documented by: Nicotine (Nicotine 7 Mg/24 Hr Patch) 7 mg TRDERM DAILY ANGI Last Admin: 01/16/21 12:22 Dose: 7 mg Documented by: Propofol (Propofol 200 Mg/20 Ml Sdv) Confirm Administered Dose 200 mg .ROUTE .STK-MED ONE Stop: 01/16/21 17:09 - Infant Interaction Infant Disposition, : at Bedside Infant Interaction: Holding Infant Feeding: Bottle Fed Support Person: Significant Other, Friend - Recovery Exam Fundal Tone: Firm Fundal Level: At Umbilicus Fundal Placement: Midline Lochia Amount: Small Lochia Color: [place] Perineum Description: Redness Episiotomy/Laceration: Approximated Bladder Status: Voiding Urinary Elimination: Voided - Exam General: Alert, Oriented, Cooperative HEENT: Pupils Equal, Pupils Reactive, EOMI, Mucous Membr. Moist/[place] Neck: Supple Lungs: Clear to Auscultation, Normal Respiratory Effort Cardiovascular: Regular Rate, Regular Rhythm GI/Abdominal Exam: Normal Bowel Sounds, Soft, Non-Tender, No Organomegaly, No Distention, No Abnormal Bruit, No Mass, Pelvis Stable Extremities: Normal Inspection, Normal Range of Motion, Non-Tender, No Pedal Edema, Normal Capillary Refill Skin: Warm, Dry, Intact Neurological: No New Focal Deficit Psy/Mental Status: Alert, Normal Affect, Normal Mood - Problem List & Annotations (1) Advanced maternal age (AMA) in SNOMED Code(s): 289121824 Code(s): MQY0941 - Status: Acute Current Visit: Yes (2) Drug abuse during SNOMED Code(s): 61839261 Code(s): O99.320 - DRUG USE COMPLICATING , UNSPECIFIED TRIMESTER; F19.10 - OTHER PSYCHOACTIVE SUBSTANCE ABUSE, UNCOMPLICATED Status: Acute Current Visit: Yes (3) Positive GBS test SNOMED Code(s): 978792794, 611277593 Code(s): B95.1 - STREPTOCOCCUS, GROUP B, CAUSING DISEASES CLASSD [facility] Status: Acute Current Visit: Yes (4) Tear of periurethral tissue with delivery SNOMED Code(s): 543157263, 177825640 Code(s): O71.89 - OTHER SPECIFIED OBSTETRIC TRAUMA Status: Acute Current Visit: Yes (5) Vaginal delivery SNOMED Code(s): 336714694 Code(s): O80 - ENCOUNTER FOR FULL-TERM UNCOMPLICATED DELIVERY Status: Acute Current Visit: Yes - Problem List Review Problem List Initiated/Reviewed/Updated: Yes - Assessment Assessment:: 01/16/21 at 39 2/7 Periurethral split, right side, repaired EBL 300 ml FF Bottle feeding 01/17/21 Doing well , bleeding light, FF AVSS Voiding, minimal pain in perineum Hgb stable Mother is caring appropriately for baby, no concerns from staff 01/18/21 day two Fundus firm and bleeding decreasing AVSS Voiding, minimal pain in perineum, passing gas Mother is caring appropriately for baby, no concerns from staff 01/19/21 day three Fundus firm and bleeding decreasing AVSS Voiding, minimal pain in perineum, passing gas Mother is caring appropriately for baby, no concerns from staff Discharge to [facility] today Needs a follow up visit in six weeks If can not get contraception needs a follow up somewhere Thursday to get one depo contraception injection - Plan Plan:: 01/16/21 Assessment: 39 2/7 weeks mother with AMA, drug use in , very limited care Induction of labor NST reactive SVE 3, membranes intact Plan: [facility] bilingual social worker contacted this morning, current case workers 50 mcg Cytotec inserted vaginally Plan for with epidural Penicillin for GBS 01/16/21 Routine cares and follow up food and nutrition services assistant involved, no concern for keeping baby with mother for now Anticipate 24-48 hour stay for mother Nicotine gum ordered 01/17/21 Routine cares SS consult Anticipate discharge 48 hours 01/18/21 Continue routine cares Anticipate discharge home tomorrow 01/19/21 Continue routine cares Anticipate discharge to [place] today See assessment plan for follow up
== END 2021-01-19 16:00 | disposition home or self-care (01) | DRG 807 ==
LOC: JP.OB 06:51 → OBSVTOIN 22:20 → JP.MS 01-17 02:00
PROVIDERS: ADMIT Advanced Practice Midwife; ATTEND Advanced Practice Midwife
PROC: 10E0XZZ Delivery of Products of Conception, External Approach (ICD-10-PCS; principal; 2021-01-16)
PROC: 3E0P7VZ Introduction of Hormone into Female Reproductive, Via Natural or Artificial Opening (ICD-10-PCS; 2021-01-16)
PROC: 10907ZC Drainage of Amniotic Fluid, Therapeutic from Products of Conception, Via Natural or Artificial Opening (ICD-10-PCS; 2021-01-16)
PROC: 3E0R3BZ Introduction of Anesthetic Agent into Spinal Canal, Percutaneous Approach (ICD-10-PCS; 2021-01-16)
PROC: 0HQ9XZZ Repair Perineum Skin, External Approach (ICD-10-PCS; 2021-01-16)
PROC: 4A1HXCZ Monitoring of Products of Conception, Cardiac Rate, External Approach (ICD-10-PCS; 2021-01-16)
DX: O99.824 Streptococcus B carrier state complicating childbirth (principal); Z37.0 Single live birth; Z3A.39 39 weeks gestation of pregnancy; Z91.030 Bee allergy status; Z91.040 Latex allergy status; Z91.09 Other allergy status, other than to drugs and biological substances; O99.214 Obesity complicating childbirth; E66.9 Obesity, unspecified; O99.334 Smoking (tobacco) complicating childbirth; F17.210 Nicotine dependence, cigarettes, uncomplicated; O99.324 Drug use complicating childbirth; F15.90 Other stimulant use, unspecified, uncomplicated; O70.0 First degree perineal laceration during delivery; Z20.822 Contact with and (suspected) exposure to COVID-19
CPT/HCPCS: 36415; 51702; 80305-QW; 81001; 85025; 99211; A9270-GY; J2540; J2590; J2704; J2795; J7030; J7120; U0002